=== PATIENT | female | born 1970 | race Caucasian/White ===

== ENCOUNTER 2017-05-29 15:20 | Outpatient (CLI) | payer OTHER | END 2017-05-29 15:27 | disposition home or self-care (01) | LOC: RAD 501 15:20 | DX: M25.561 Pain in right knee (principal); M25.562 Pain in left knee ==

== ENCOUNTER 2020-10-17 08:00 | Outpatient (CLI) | payer OTHER | END 2020-10-17 08:30 | disposition home or self-care (01) | LOC: PPH VACUNA 08:00 | DX: Z23 Encounter for immunization (principal) ==

== ENCOUNTER 2020-11-07 08:00 | Outpatient (CLI) | payer OTHER | END 2020-11-07 08:30 | disposition home or self-care (01) | LOC: PPH VACUNA 08:00 | DX: Z23 Encounter for immunization (principal) ==

== ENCOUNTER 2024-02-16 13:29 | Emergency (ER) | payer OTHER ==
[~2024-02-16] VITALS: Ht 162.6 cm; Wt 78.0 kg
[2024-02-16] MEDS ORDERED: TETANUS & DIPHTHERIA TOX,ADULT 0.5 ML VIAL IM ONE (14:45)
[2024-02-16] MEDS ORDERED: CEFTRIAXONE SODIUM 1,000 MG VIAL IM ONE (14:45)
== END 2024-02-16 16:30 | disposition home or self-care (01) ==
LOC: ER 13:32
DX: S99.829A Other specified injuries of unspecified foot, initial encounter (principal); X58.XXXA Exposure to other specified factors, initial encounter; Y93.89 Activity, other specified; Y92.832 Beach as the place of occurrence of the external cause; Y99.8 Other external cause status; E03.8 Other specified hypothyroidism
CPT/HCPCS: 73630; 90471; 90714; J1670

== ENCOUNTER 2024-10-25 16:40 | Emergency (ER) | payer OTHER ==
[~2024-10-25] VITALS: Ht 162.6 cm; Wt 66.7 kg
[2024-10-25] MEDS ORDERED: SYNTHROID50 MCG PO (17:26)
[2024-10-25] MEDS ORDERED: PROAIR RESPICL90 MCG (17:27)
[2024-10-25] MEDS ORDERED: CYTOMEL50 MCG (17:27)
[2024-10-25] MEDS ORDERED: IPRATROPIUM/ALBUTEROL SULFATE 3 ML AMPUL.NEB IH SCH (19:30)
[2024-10-25] MEDS ORDERED: BUDESONIDE 0.5 MG/2 ML AMPUL.NEB IH ONE (19:30)
== END 2024-10-25 22:35 | disposition left against medical advice (07) ==
LOC: ER 16:40
DX: J45.909 Unspecified asthma, uncomplicated (principal)